=== PATIENT | female | born 1965 | race African-American/Black ===

== ENCOUNTER 2024-04-13 20:13 | Emergency (ER) | payer MEDICARE, MEDICAID ==
[~2024-04-13] VITALS: Ht 160 cm; Wt 77.1 kg
[2024-04-13] VITALS (8 sets, daily range): BP systolic 156–172; BP diastolic 73–83
[~2024-04-13 20:13] MED LIST: AMITRIPTYLIN50 MG PO; ASPIRIN EC81 MG PO; ASPIRIN81 MG PO; ATENOLOL25 MG PO; B COMPLETE PO; B12 LIQUID OR; CALCIUM + D600 MG OR; CIPROFLOXACN500 MG PO; CYMBALTA30 MG PO; EZETIMIBE10 MG PO; FAMOTIDINE20 M2; FLEXERIL PO; GLIPIZIDE5 M2 PO; GLUCOPHAGE1000 MG PO; HUMALOG PEN100 MG/M1 SC; HUMALOG100 MG/ML SC; HYDROCHLOROT25 MG PO; JARDIANCE10 MG PO; KERENDIA10 MG PO; KRISTALOSE20 GM PO; LANTUS; LANTUS SOL100 UNIT/M SC; LANTUS100 MG/ML SC; LIPITOR40 MG PO; LISINOPRIL5 MG PO; LOSARTAN POTASS50 MG PO; LYRICA50 MG PO; MACROBID100 MG PO; MAXZIDE-2537.5 MG/TA PO; METFORMIN1000 MG PO; METRONIDAZOL500 MG PO; MOBIC7.5 M1 PO; NAPROSYN500 MG PO; NEXIUM20 M1 PO; NEXIUM40 M1 PO; NORVASC PO; ONDANSETRON4 MG PO; PERCOCET 10/31 COMBO PO; PROTONIX40 M2 PO; SERTRALINE50 MG PO; SIMVASTATIN40 MG OR; TRAMADOL HCL50 MG PO; TRENTAL400 MG PO; TRI-PREVIFEM OR; TRULICITY SC; ULTRAM50 M1 PO
[2024-04-13 21:52] LABS: BASO% 0.3 % (0-3); EOS% 0.7 % (0-8); IMMATURE GRANULOCYTES 0.1 % (0.0-5.0); LYMPH% 27.1 % (15-41); MEAN CORPUSCULAR HGB 27.7 pG CALC (26.0-32.0); MEAN CORPUSCULAR HGB CONC 32.1 g/dL CAL (32.0-36.0); MONO% 9.5 % (2-13); NEUT# 4.58 thou/uL (2.00-7.15); NEUT% 62.3 % (42-76); RED BLOOD COUNT 3.18 mill/uL (4.20-5.60)
[2024-04-13 21:53] LABS: HEMATOCRIT 27.4 % (37.0-47.0); HEMOGLOBIN 8.8 g/dl (12.0-16.0); MEAN CELL VOLUME 86.2 fL CALC (80.0-100.0)
[2024-04-13 22:07] LABS: C-REACTIVE PROTEIN 6.4 mg/dL (0-0.9); POTASSIUM 4.4 mmol/l (3.5-5.1)
[2024-04-13 22:10] LABS: ALBUMIN 3.4 g/dL (3.2-5.0); BILIRUBIN, TOTAL 0.5 mg/dL (0.02-1.3); CREATININE 2.6 mg/dL (0.5-1.0)
[2024-04-14 01:00] VITALS: BP 169/80
== END 2024-04-14 01:02 | disposition home or self-care (01) ==
LOC: ED 20:13
PROVIDERS: Family Medicine
DX: M79.89 Other specified soft tissue disorders (principal); I11.0 Hypertensive heart disease with heart failure; I50.9 Heart failure, unspecified; E11.9 Type 2 diabetes mellitus without complications; Z79.84 Long term (current) use of oral hypoglycemic drugs; Z79.4 Long term (current) use of insulin; Z87.81 Personal history of (healed) traumatic fracture; Z98.890 Other specified postprocedural states